=== PATIENT | male | born 1990 | race Caucasian/White ===

== ENCOUNTER 2020-01-06 22:54 | Emergency (ER) | payer BC, SELFPAY ==
--- NOTE | ~2020-01-06 | XR_ITS ---
EXAMINATION: XR chest 2V DATE: 01/07/2020 00:08 INDICATION: Cough and shortness of breath TECHNIQUE: PA and lateral views of the chest were obtained. COMPARISON: Chest radiograph dated 10/10/2017 FINDINGS: The lungs remain clear with no focal airspace opacities, pulmonary edema, pleural effusion or pneumot horax. The cardiomediastinal silhouette is normal. Visualized bones and soft tissues are unremarkable . IMPRESSION: 1. No acute cardiopulmonary disease. Reviewed, dictated and finalized at location A. [employer]
[2020-01-06 23:19] VITALS: BP 139/91; PULSE 109; RESP 19; TEMP 37.8; O2SAT 100; O2SAT 98
[2020-01-07 00:08] LABS: Basophils Percent Auto 0.2 % (0.2-1.2); Eosinophils Percent Auto 0.2 % (0-4.4); Hematocrit 47.9 % (42.0-52.0); Hemoglobin 16.5 g/dL (14.0-18.0); Immature Granulocyte Absolute 0.01 K/mm3 (0.00-0.031); Immature Granulocyte Percent A 0.2 % (0-0.5); Lymphocytes Absolute Auto 0.71 K/mm3 (0.9-3.2); Lymphocytes Percent Auto 12.5 % (18.3-44.2); Mean Corpuscular HGB Conc 34.4 g/dl (32-36); Mean Corpuscular Volume 92.8 fl (80-100); Mean Platelet Volume 10.5 fl (7.4-10.4); Monocytes Absolute Auto 0.9 K/mm3 (0.1-0.6); Monocytes Percent Auto 15.8 % (2.6-8.5); Neutrophils Absolute Auto 4.1 K/mm3 (1.3-6.7); Neutrophils Percent Auto 71.1 % (45.5-73.1); Platelet Count Result 170 k/mm3 (150-375); Red Blood Count 5.16 M/mm3 (4.6-6.20); Red Cell Distribution Width 12.6 % (11.5-14.5); White Blood Count 5.7 K/mm3 (4.5-10.0)
--- NOTE | 2020-01-07 00:30 | ED.URI ---
HPI - URI/Sore Throat General Chief Complaint: Upper Respiratory Infection Stated Complaint: HEADACHE, BODYACHE Time Seen by Provider: 01/06/20 23:25 Source: patient Mode of arrival: ambulatory Limitations: no limitations History of Present Illness HPI Narrative: 29-year-old male in good health Non-smoker Complains of a 1 day history of body aches low-grade fever mild headache and dry cough No sore throat no nausea vomiting diarrhea no urinary symptoms no rash; he does have some slight lower abdominal discomfort occasionally No ill contacts that he is aware of MD elicited complaint: cough Onset (ago): day(s) Severity: moderate Able to tolerate fluids by mouth: Yes Exacerbating factors: nothing Relieving factors: nothing Related Data Allergies Allergy/AdvReac Type Severity Reaction Status Date / Time No Known Allergies Allergy Unverified 07/12/18 18:51 Review of Systems Review of Systems: All systems reviewed & are unremarkable except as noted in HPI and below Constitutional: Constitutional: Reports chills, Reports fatigue, Reports fever(s), Denies headache(s) and Denies night sweats Eyes: Eyes: Denies change in vision, Denies loss of vision and Denies other visual disturbances ENT: Denies headache(s), Denies hoarseness, Denies epistaxis, Denies nasal congestion and Denies sore throat Cardiovascular: Cardiovascular: Denies chest pain, Denies leg edema, Denies palpitations and Denies dyspnea Respiratory: Respiratory: Reports cough, Denies dyspnea and Denies wheezing Gastrointestinal: Gastrointestinal: Denies abdominal pain, Denies diarrhea, Denies nausea and Denies vomiting Genitourinary: Genitourinary: Denies hematuria, Denies dysuria and Denies urinary frequency Musculoskeletal: Musculoskeletal: Denies abnormal gait, Reports myalgias, Denies deformity, Denies joint swelling, Denies muscle weakness and Denies numbness Integumentary/Breasts: Skin/Breast: Denies rash, Denies unusual bruising and Denies wounds Neurologic: Denies abnormal gait, Denies headache(s), Denies focal weakness, Denies loss of vision and Denies numbness Psychiatric: Psychiatric: Reports no additional psychiatric complaints Endocrine: Endocrine: Denies fatigue and Denies palpitations Hematologic/Lymphatic: Hematologic/Lymphatic: Denies easy bleeding and Denies easy bruising Allergic/Immunologic: Allergic/Immunologic: Denies wheezing PMFSH Social History Social History Smoking status: Never smoker Alcohol intake: current Gender identity (if verbalized by the patient): Male Exam Const: General: healthy appearing, no acute distress and well developed Nutritional Appearance: well nourished Orientation/consciousness: patient oriented x3 (alert) and Other orientation findings (Alert) Limitations: no limitations HENMT: Head: normocephalic and atraumatic Ears: external ears normal General nose exam: No nasal discharge present and no epistaxis Face and sinus: face symmetric Mouth: Yes lip normal, Yes tongue normal and Yes moist mucous membranes Throat: other (No exudate, no erythema) Eyes: Conjunctivae: conjunctivae normal Sclera: sclerae normal EOM: EOMs intact bilaterally Neck: Neck: full ROM, no lymphadenopathy and supple Thyroid: thyroid normal Chest: Chest palpation & inspection: no tenderness Resp: Effort & Inspection: normal respiratory effort Auscultation: clear to auscultation bilaterally, no rales, no rhonchi, no wheezes and other (breath sounds equal) Cardio: Rate: regular rate Rhythm: regular rhythm Heart sounds: no gallops and no murmurs GI: Inspection: non-distended GI Palp: No abdominal tenderness, Yes Soft to palpation and No Tenderness to palpation present (GI) Auscultation: other (bowel sounds present) : General: Yes no CVA tenderness Back/Spine/Pelvis: Thoracic/Lumbar Spine: thoracic and lumbar spine normal to inspection Skin: General skin e
[2020-01-07 00:51] VITALS: BP 144/71; PULSE 105; RESP 18; O2SAT 100
[2020-01-07 01:26] VITALS: BP 124/74; PULSE 84; RESP 16; TEMP 36.7; O2SAT 100
== END 2020-01-07 01:25 | disposition home or self-care (01) ==
PROVIDERS: Emergency Provider Emergency Medicine
DX: B34.9 Viral infection, unspecified (principal)
CPT/HCPCS: 36415; 71046; 85025; 87804; 99283

== ENCOUNTER 2020-03-11 15:17 | Emergency (ER) | payer BC, SELFPAY ==
--- NOTE | ~2020-03-11 | CT_ITS ---
EXAMINATION: CT shoulder LT wo con DATE: 03/11/2020 17:23 INDICATION: Left shoulder pain. Fracture. TECHNIQUE: Computed tomography (CT) of the left shoulder was performed without intravenous contrast. The dose-length product was 664.50 mGy-cm. COMPARISON: Left shoulder series dated 03/11/2020 FINDINGS: There is posterior subluxation of the humeral head with mildly displaced fracture of the le sser tuberosity. No fracture of the glenoid process is identified. Coracoid appears intact. There is anatomic alignment of the acromioclavicular joint. IMPRESSION: 1. Posterior glenohumeral subluxation with mildly displaced fracture of the lesser tuberosity. Reviewed, dictated and finalized at location A. IMPRESSION: 1. Posterior glenohumeral subluxation with mildly displaced fracture of the les ser tuberosity.
--- NOTE | ~2020-03-11 | XR_ITS ---
XR shoulder LT min 2V 03/11/2020 16:13 Indication: Left shoulder pain Procedure: 4 views left shoulder Comparison: 4 views left shoulder Findings: There is a posterior glenohumeral joint dislocation with Hill-Sachs fracture of the humeral head. No definite scapular fracture. Acromioclavicular joint intact. Impression: 1: Posterior glenohumeral joint dislocation with Hill-Sachs fracture of the humeral head. Reviewed, dictated and finalized at location A. Impression: 1: Posterior glenohumeral joint dislocation with Hill-Sachs fracture of the hum eral head.
[2020-03-11 15:20] VITALS: BP 148/97; PULSE 96; RESP 18; TEMP 36.9; O2SAT 99
[2020-03-11 15:32] VITALS: O2SAT 99
--- NOTE | 2020-03-11 15:39 | ECG_ITS ---
Measurements Intervals Bulger Rate: 82 P: 27 SD: 174 QRS: 12 QRSD: 97 T: 30 QT: 355 QTc: 415 Interpretive Statements SINUS RHYTHM NORMAL ECG Electronically Signed On 03-11-2020 16:31:49 CDT by Torrey Gilmore D.O.
--- NOTE | 2020-03-11 15:40 | ED.UPPEXIN ---
HPI - Extremity Injury (Upper) General Chief Complaint: Extremity Injury, Upper Stated Complaint: left arm pain Time Seen by Provider: 03/11/20 15:20 History of Present Illness HPI narrative: Pt c/o left shoulder pain, 8/10, aching, non radiating, started today. Denies any direct injury but state he's been moving drills and drill bit in his garage. Pt states that the pain is worse with movement and palpation. Denies cp, sob, abd pain, back pain or neck pain. Related Data Home Medications Medication Instructions Recorded Confirmed No Home Medications 03/11/20 03/11/20 Allergies Allergy/AdvReac Type Severity Reaction Status Date / Time No Known Allergies Allergy Verified 03/11/20 15:26 Review of Systems Review of Systems: All systems reviewed & are unremarkable except as noted in HPI and below PMFSH Social History Social History Smoking status: Never smoker Alcohol intake: current Gender identity (if verbalized by the patient): Male Exam Const: General: cooperative, healthy appearing, comfortable, no acute distress, well developed, alert and awake; No confusion Orientation/consciousness: oriented to person, oriented to place, oriented to time, patient oriented x3 and No confusion Limitations: no limitations HENMT: Head: normal to inspection, normocephalic and atraumatic Ears: hearing grossly normal bilaterally, TM normal on the right and TM normal on the left General nose exam: Normal external nose present, Normal nares present and No nasal discharge present Face and sinus: normal facial exam Mouth: Yes Normal oral and palatal mucosa present, Yes lip normal, Yes tongue normal and Yes oropharynx normal Throat: posterior oropharynx normal, tonsils normal and uvula midline Eyes: General: appearance normal, both eyes and all related structures Pupils: Equal, round and reactive pupils present EOM: EOMs intact bilaterally Neck: Neck: normal visual inspection, full ROM, no lymphadenopathy and no meningeal signs Chest: Chest palpation & inspection: normal inspection of the chest Resp: Effort & Inspection: normal respiratory effort, able to speak in complete sentences, no respiratory distress and not tachypneic Auscultation: clear to auscultation bilaterally, no crackles, no rales, no rhonchi and no wheezes Cardio: Rate: regular rate Rhythm: regular rhythm GI: Inspection: normal to inspection GI Palp: No abdominal tenderness, Yes Soft to palpation, No Tenderness to palpation present (GI), No Guarding due to palpation present (GI), No Rigid due to palpation and No Rebound tenderness present Auscultation: normal bowel sounds : General: Yes no CVA tenderness Back/Spine/Pelvis: Back: no CVA tenderness Skin: General skin exam: normal color, no rashes or lesions noted, elasticity normal and turgor normal Neuro: General: oriented to person, oriented to place, oriented to time, patient oriented x3, tone normal, moves all extremities, Normal light touch and pain sensation, no meningeal signs, no focal motor deficits, CN's II-XI intact bilaterally and No confusion Cranial nerves: Yes Equal, round and reactive pupils present Speech: No Abnormal speech present Sensory Exam: No Sensory deficit (Neuro) Extrem: General: normal to inspection and capillary refill normal Other: pain on palpation of the ant and post shoulder, neurovasc intact negative for swelling, redness or deformity Psych: Appearance: grossly normal and well kempt Mental Status: mental status grossly normal Speech and movement: Normal speech and movement present Affect: normal affect Attitude: cooperative Thought process: Normal thought process present Thought content: Yes Normal thought content present Insight: Good insight present (Psych) Judgement: Good judgement present (Psych) Course Vital Signs Vital signs: Vital Signs Temperature 36.9 C 03/11/20 15:20 Pulse Rate 96 03/11/20
[2020-03-11] MEDS: CYCLOBENZAPRINE HCL 10 MG TABLET PO (16:02)
[2020-03-11] MEDS: KETOROLAC (*BKC) 60 MG/2 ML VIAL IM (16:03)
[2020-03-11 19:19] VITALS: BP 132/84; PULSE 83; RESP 17; TEMP 36.9; O2SAT 90
--- NOTE | 2020-03-11 19:32 | PC.NURSE ---
Called [facility] and they gave us and ETA for [phone]
--- NOTE | 2020-03-11 19:40 | PC.NURSE ---
1939 left arm sling placed bhavesh well
[2020-03-11 19:45] VITALS: BP 133/87; PULSE 78; RESP 15; O2SAT 97
[2020-03-11] MEDS: HYDROMORPHONE HCL 1 MG/ML INJ IM (19:45)
--- NOTE | 2020-03-11 19:46 | PC.NURSE ---
[facility] arrived to transfer pt to [facility] ER @ 194
== END 2020-03-11 19:50 | disposition short-term general hospital (02) ==
PROVIDERS: Emergency Provider Emergency Medicine
DX: S42.292A Other displaced fracture of upper end of left humerus, initial encounter for closed fracture (principal); X50.9XXA Other and unspecified overexertion or strenuous movements or postures, initial encounter
CPT/HCPCS: 73030; 73200; 93005; 96372; 99285; A4565; A9270; J1170; J1885